=== PATIENT | male | born 1960 | race Caucasian/White ===

== ENCOUNTER 2017-07-03 02:09 | Inpatient (IN) | payer OTHER ==
[~2017-07-03] VITALS: Ht 170.2 cm; Wt 117.9 kg
[~2017-07-03 02:09] MED LIST: AMLODIPINE BESY10 M1 PO; TOPROL XL100 M1 PO
[2017-07-03] MEDS ORDERED: ASPIRIN EC81 M1 PO (12:22)
[2017-07-03] MEDS ORDERED: MS CONTIN15 M3 PO (12:22)
[2017-07-03] MEDS ORDERED: DILAUDID2 M1 PO (12:22)
[2017-07-03] MEDS ORDERED: PROTONIX20 M1 PO (12:22)
[2017-07-03] MEDS ORDERED: COLACE100 M1 PO (12:22)
--- NOTE | 2017-07-03 12:27 | Patient Discharge Instructions ---
Discharge Instructions General Discharge Information You were seen/treated for: LEFT KNEE ARTHRITIS You had these procedures: LEFT TOTAL KNEE REPLACEMENT Watch for these problems: Increasing pain despite the use of pain medication Increasing redness, warmth or swelling Drainage of any type from incision Inability to bear weight on operative leg Persistent nausea and vomiting Fever greater than 101.5 degrees Please keep wound clean and dry. No ointments or lotions of any type on or near incision at any time. No exceptions. Your dressing will be changed by your nurse on the second day after your surgery. Daily dry dressing changes are recommended each day thereafter. Do not soak your wound in a bath at any time until otherwise indicated by your surgeon. You may shower, please dry wound immediately after shower with a clean towel. Call Surgeon to remove: [place] (2 WEEKS) Do not soak the wound: No Daily wet to dry dressings: No No bath, but you may shower: No Special Instructions: Aspirin: You are taking this medication to help prevent blood clot formation. Please take with food to protect your stomach lining. Please take as directed. Constipation: Pain medication can cause constipation. Dr. Mendoza has recommended that you take Colace and miralax each day. You may discontinue this medication if you develop loose stool or diarrhea. If you wish to continue this medication, it is available over the counter. If you are unable to move your bowels after several days, if you are unable to pass gas and are developing bloating, nausea, or vomiting as a result, please contact your doctor. Diet Continue normal diet: Yes Recommended Diet: Regular Activity Full Activity/No Limits: No (NO STRENUOUS ACTIVITIES) Activity Self Limited: Yes Activity Limited to: Weight bear as tolerated Acute Coronary Syndrome Inclusion Criteria At ID or during hospital stay patient has or had the following: ACS DIAGNOSIS No Discharge Core Measures Meds if any: Prescribed or Continued at Discharge HEATHER/ARB if EF <40% No Aspirin Yes Beta-Roxana Yes Statin Yes Meds if any: NOT Prescribed or Continued at Discharge Congestive Heart Failure Inclusion Criteria At DC or during hospital stay patient has or had the following: CHF DIAGNOSIS No Discharge Core Measures Meds if any: Prescribed or Continued at Discharge Meds if any: NOT Prescribed or Continued at Discharge Cerebrovascular accident Inclusion Criteria At DC or during hospital stay patient has or had the following: CVA/TIA Diagnosis No Discharge Core Measures Meds if any: Prescribed or Continued at Discharge Meds if any: NOT Prescribed or Continued at Discharge Venous thromboembolism Inclusion Criteria VTE Diagnosis No VTE Type NONE VTE Confirmed by (Test) NONE Discharge Core Measures - Per Current guidelines, there needs to be overlap - treatment for the first 5 days of Warfarin therapy. - If discharged on Warfarin prior to 5 days of - overlap therapy, the patient will need to be - assessed for post discharge needs including - *Post discharge parental anticoagulation - *Warfarin and/or parental anticoagulation education - *Follow up date to check INR post discharge At least 5 days overlap therapy as Inpatient Yes Meds if any: Prescribed or Continued at Discharge Warfarin No Note: Overlap Therapy is Warfarin and Anticoagulant Meds if any: NOT Prescribed or Continued at Discharge No Warfarin d/t Prescribed other Anticoag No Overlap Therapy d/t Prescribed other Anticoag
--- NOTE | 2017-07-03 12:34 | Surg Short-stay <48hrs Dis Sum ---
Visit Information Visit Dates Admission Date: 07/03/17 Discharge Date: 07/05/17 Surgical Short Stay DC Summary Admission Diagnosis: LEFT KNEE OSTEOARTHRITIS Final Diagnosis: LEFT KNEE OSTEOARTHRITIS Procedure(s): LEFT TOTAL KNEE ARTHROPLASY Summary/Significant Findings: Aspirin: You are taking this medication to help prevent blood clot formation. Please take with food to protect your stomach lining. Please take as directed. 57 Y/O MALE IS S/P LEFT TOTAL KNEE ARTHROPLASTY ON 07/03/2017 PMHX SIGNIFICANT FOR HYPERTENTION AND HYPERLIPIDEMIA. HE HAD AN UNEVENTFUL POSTOPERATIVE COURSE. HE WAS SEEN ON THE FLOOR BY PT FOR WBAT. THROUGH OUT HIS HOSPITAL STAY HIS VVS HAVE REMAINED STABLE AND HE IS AFEBRILE. HE IS DISCHAGED IN STABLE CONDITION WITH ALL QUESTIONS ANSWERED Condition at Discharge: STABLE Discharge Disposition: home health services Discharge instructions provided to patient/family: Yes Post discharge follow-up plan: CALL OFFICE FOR FOLLOW-UP IN 6 WEEKS Copies to: Harjinder Mendoza MD
--- NOTE | 2017-07-03 13:46 | Operative Report ---
Operative/Inv Procedure Report Surgery Date: 07/03/17 Name of Procedure: Left total knee replacement Pre-Operative Diagnosis: Primary left knee DJD Post-Operative Diagnosis: Same Estimated Blood Loss: 50ml to 100ml Surgeon/Logistics/Shipper: Reji SCALES,Harjinder Alfonso Anesthesia: block Operative/Procedure Note Note: Description of Procedure: The patient was taken to the operating room and positively identified. After induction of spinal anesthesia and administration of appropriate pre-operative antibiotics, the patient was positioned supine on the operating room table and all bony prominences were well padded. A well-padded pneumatic tourniquet was placed on the left upper thigh. After performing a surgical timeout, the left lower extremity was prepped and draped in the usual sterile fashion. After exsanguination with Esmarch the tourniquet was inflated to 250mm of mercury. A standard medial parapatellar approach was made to the knee. This was carried down through skin and subcutaneous tissue to the level of the fascia. Meticulous hemostasis was maintained with Bovie electrocautery. The extensor mechanism and patellar retinaculum were opened sharply and the patella was everted. The infrapatellar fat was resected in order to improve exposure. Osteophytes were trimmed from the patella and femoral condyles and the patella was re-everted and tucked laterally. A medial release was performed and the cruciate ligaments were resected. The tibia was then subluxed anteriorly. Utilizing the appropriate extra-medullary guide, the proximal tibia was trimmed perpendicular to the long axis of the tibial shaft. Attention was then turned to the femur. After opening the medullary canal, the distal femoral cut was made in 6 degrees of valgus utilizing the appropriate intra-medullary guide. The extension gap was checked and found to be appropriate. The femur was then sized and the remainder of the femoral cuts were made with a size 5 4-in-1 femoral cutting guide. The flexion gap was checked and found to be symmetric and appropriate. The knee was then trialed with a size 5 femoral component, a size 5 tibial component and a size 22 TS mm polyethylene insert. The patella was trimmed to accept an A 35 patella. This yielded excellent range of motion, stability and patellar tracking. All trial components were removed and the knee was copiously irrigated with sterile saline. All components were cemented into place with Erlin Simplex cement. All the components were of the [place] [employer] knee system of the above stated sizes. The knee was again irrigated after cementation. The extensor mechanism and patellar retinaculum were repaired using interrupted #1 vicryl suture. The skin was re-approximated with 2-0 vicryl and closed with richard. A sterile dressing was applied, the tourniquet was deflated, the patient was awakened and taken to the recovery room in satisfactory condition.
[2017-07-03 15:35] VITALS: BP 108/66
--- NOTE | 2017-07-03 16:42 | Admission Core Measures ---
Acute Coronary Syndrome (CM) ACS Core Measures Acute Coronary Syndrome Diagnosis No Congestive Heart Failure (NEW) CHF Core Measures Congestive Heart Failure Diagnosis No Cerebrovascular Accident (NEW) CVA Core Measures CVA/TIA Diagnosis No Venous Thromboembolism VTE Core Bg (View Protocol) VTE Risk Factors Surgery No Mechanical VTE Prophylaxis d/t N/A MechProphylax Ordered No VTE Pharm Prophylaxis d/t NA PharmProphylax ordered Problem List As ranked by this Provider includes Assessment & Plan 1. Primary osteoarthritis of left knee HOME MEDS Home Med List Amlodipine Besylate 10 MG TABLET 1 TAB PO DAILY BP (Reported) Aspirin (Ecotrin*) 81 MG TABLET.DR 321 MG PO BID CLOT PREVENTION Docusate Sodium (Colace) 100 MG CAPSULE 1 CAP PO BID PREVENT CONSTIPATION Hydromorphone HCl (Dilaudid) 2 MG TABLET 1-2 TAB PO Q4-6 PRN PRN PAIN Metoprolol Succ XL (Toprol XL) 100 MG TAB.ER.24H 1 TAB PO DAILY BP (Reported) Morphine Sulfate (Ms Contin) 15 MG TABLET.ER 1 TAB PO BID PRN PAIN Pantoprazole Sodium (Protonix) 20 MG TABLET.DR 1 TAB PO DAILY GI PROTECTION
--- NOTE | 2017-07-03 16:51 | PN- Orthopedic ---
Subjective Subjective: No acute post operative events reported. Pain starting, but tolerable at present. No complaints of chest pain, shortness of breath and difficulty breathing. No complaints of nausea and vomitting. Has yet to get oob. Voided. Objective Vital Signs and I&Os Vital Signs Date Time Temp Pulse Resp B/P B/P Pulse O2 O2 Flow FiO2 Mean Ox Delivery Rate 07/03 1535 97.0 50 18 108/66 96 Room Air Intake & Output 07/03 1600 07/03 0807/03 0000 07/02 1600 07/02 0807/02 0000 Intake Total Output Total Balance Patient 260 lb Weight Physical Exam: General: Alert and oriented x3, no acute distress Cardiac: Sinus med, hr 55 on auscultaiton Pulm: CTA bilaterally, nonlabored respiratory effort Abd: non-tender, non-distended Extremities: Moves all extremities, distal sensation grossly intact. Skin warm and well pefused. Hemovac x1 holding suction. Dressing to operative knee dry and intact. Bilateral calves soft and non-tender. Assessment/Plan Assessment/Plan This is a 57 year old male, POD 0, s/p L TKR -Melatonin for sleep tonight -Hold metoprolol if bradycardia persists -Follow up labs in am -OOB, with assist, wbat -ASA 325 bid for dvt ppx -Dilaudid po prn for pain, scheduled offirmev, prn toradol, prn morphine -keep hemovac to suction overnight -Diet as tolerated -Bowel regimen scheduled, colace and miralax -On Q in place, to be removed POD 2 -Dressing change POD [address] Will discuss poc with Dr[address] Mendoza Core Measures Venous Thromboembolism VTE Risk Factors Surgery No Mechanical VTE Prophylaxis d/t N/A MechProphylax Ordered No VTE Pharm Prophylaxis d/t NA PharmProphylax ordered
[2017-07-03 16:57] VITALS: BP 130/74
[2017-07-03 19:04] VITALS: BP 134/80
[2017-07-03 21:00] VITALS: BP 130/76
[2017-07-04 00:15] VITALS: BP 148/84
[2017-07-04 04:24] VITALS: BP 140/88
--- NOTE | 2017-07-04 07:30 | PN- Orthopedic ---
Subjective Subjective: Patient with complaints of pain to the left knee , it is moderate No other complaints, feels well otherwise, no fever no flulike illness. Objective Vital Signs and I&Os Vital Signs Date Time Temp Pulse Resp B/P B/P Pulse O2 O2 Flow FiO2 Mean Ox Delivery Rate 07/04 0424 98.1 64 18 140/88 97 Room Air 07/04 0015 97.7 65 18 148/84 98 Room Air 07/03 2100 98.1 67 18 130/76 96 Room Air 07/03 1904 96.8 55 20 134/80 98 Room Air 07/03 1850 Room Air Room Air 07/03 1657 96.1 43 20 130/74 97 Room Air 07/03 1535 97.0 50 18 108/66 96 Room Air Intake & Output 07/04 0800 07/04 0000 07/03 1600 07/03 0800 07/03 0000 07/02 1600 Intake Total 840 1140 Output Total 1110 500 Balance -270 640 Intake, IV 600 900 Intake, Oral 240 240 Number 0 Bowel Movements Output, 210 500 Drainage Output, Urine 900 Patient 260 lb Weight Physical Exam: Well-developed well-nourished no apparent distress. HEENT: Atraumatic, extraocular motion intact Neck: Supple, no lymphadenopathy Respiratory: No respiratory distress Extremities: No edema LEFT lower extremity dressing in place, Range of motion 0-45 On-Q in place Hemovac drain in place with small amount of bloody drainage noted Compression wrap in place. ALPS in place Neurovascularly intact distally Bilateral calves are supple, nontender. Neuro: Alert and oriented x3 Psych: Mood affect normal, normal memory normal judgment. Skin: Warm and dry, no rash on exposed skin Assessment/Plan Assessment/Plan Postop day #1 status post left total knee arthroplasty Perioperative antibiotics. Pain medication as needed. Out of bed Physical therapy, weightbearing as tolerated DC IV fluids Continue Hemovac drain due to increased output overnight of 210 mL's, possible pull drain at the end of the next shift Regular diet Follow a.m. labs Aspirin for DVT prophylaxis ALPS for DVT prophylaxis Regular home meds Dressing change postop day 2 Core Measures Venous Thromboembolism VTE Risk Factors Surgery No Mechanical VTE Prophylaxis d/t N/A MechProphylax Ordered No VTE Pharm Prophylaxis d/t NA PharmProphylax ordered
[2017-07-04 08:00] LABS: ABSOLUTE BASOPHIL COUNT 0 /CUMM (0.0-0.2); ABSOLUTE EOSINOPHIL COUNT 0 /CUMM (0.0-0.7); ABSOLUTE GRANULOCYTE CT 7.4 /CUMM (1.4-6.5); ABSOLUTE LYMPH COUNT 0.6 /CUMM (1.2-3.4); ABSOLUTE MONOCYTE COUNT 0.3 /CUMM (0.10-0.60); BASOPHIL % 0 % (0.0-2.0); EOSINOPHIL % 0 % (0-5); HEMATOCRIT 38.7 % (42-52); MEAN CORPUSCULAR HGB 30.6 PG (27.0-31.0); MEAN CORPUSCULAR HGB CONC 34.1 G/DL (33.0-37.0); MEAN CORPUSCULAR VOLUME 89.7 FL (80.0-94.0); MEAN PLATELET VOLUME 8.6 FL (7.4-10.4); PLATELET COUNT 156 /CUMM (130-400); RBC DISTRIBUTION WIDTH 12.8 % (11.5-14.5); RED BLOOD CELL CT 4.32 /CUMM (4.70-6.10); WHITE BLOOD CELL COUNT 8.3 /CUMM (4.8-10.8)
[2017-07-04 09:29] LABS: GRANULOCYTE % 88.9 % (42.2-75.2)
[2017-07-04 14:46] VITALS: BP 130/80
[2017-07-04 22:14] VITALS: BP 120/60
[2017-07-05 06:19] VITALS: BP 120/64
--- NOTE | 2017-07-05 07:51 | PN- Orthopedic ---
Subjective Subjective: Drain removed inadvertently last shift, no bleeding, no worsening pain. On Q dc 'd this am. Dressing changed. Pt expressing interest in possible dc to home later today. Denies chest pain, shortness of breath and difficulty breathing. Denies nausea and vomitting. Has been oob. Has voided. Needs to work with PT to clear stairs today. Objective Vital Signs and I&Os Vital Signs Date Time Temp Pulse Resp B/P B/P Pulse O2 O2 Flow FiO2 Mean Ox Delivery Rate 07/05 618 98.5 63 20 120/64 96 Room Air 07/04 2214 98.3 74 20 120/60 98 07/04 1446 98.6 73 18 130/80 98 Room Air 07/04 0906 98.1 64 18 140/88 07/04 0906 98.1 64 18 140/88 Intake & Output 07/05 0800 / 0000 07/04 1600 07/04 0800 07/04 0000 /02 1600 Intake Total 250 260 317 267 3210 Output Total 550 189 071 4061 500 Balance -300 -635 450 -270 640 Intake, IV 10 20 600 900 Intake, Oral 240 240 800 240 240 Number 0 Bowel Movements Output, 475 210 500 Drainage Output, Urine 550 420 350 900 Patient 260 lb Weight Physical Exam: General: Alert and oriented x3, no acute distress Cards: RRR, s1s2 Pulm: CTA, non-labored respiratory effort Abd: Non-tender, non-distended Extremities: Moves all extremities, distal sensation grossly intact. Skin warm and well perfused. Dressing changed, skin edges well approximated, richard inplace. No erythema. No drainage. Hemovac site healed. Some ecchymosis. Clean dry dressing reapplied. Bilateral calves soft and non-tender. Assessment/Plan Assessment/Plan This is a 57 year old male, POD 2, s/p L TKR -Continue asa 325 bid for dvt ppx -Continue oob, wbat, stairs with PT -Continue diet as tolerated -Daily dry dressing changes -Continue po only pain regimen Anticipate dc to home today pending pain control and pt clearance Will discuss poc with Dr. Mendoza Core Measures Venous Thromboembolism VTE Risk Factors Surgery No Mechanical VTE Prophylaxis d/t N/A MechProphylax Ordered No VTE Pharm Prophylaxis d/t NA PharmProphylax ordered
[2017-07-05] MEDS ORDERED: MIRALAX17 G1 PO (07:53)
[2017-07-05] MEDS ORDERED: ASPIRIN EC325 M2 PO (07:53)
[2017-07-05 08:44] VITALS: BP 82/60
[2017-07-05 09:14] LABS: ABSOLUTE BASOPHIL COUNT 0.2 /CUMM (0.0-0.2); ABSOLUTE EOSINOPHIL COUNT 0.1 /CUMM (0.0-0.7); ABSOLUTE GRANULOCYTE CT 6.3 /CUMM (1.4-6.5); ABSOLUTE LYMPH COUNT 2.7 /CUMM (1.2-3.4); ABSOLUTE MONOCYTE COUNT 0.8 /CUMM (0.10-0.60); BASOPHIL % 2.1 % (0.0-2.0); EOSINOPHIL % 1.4 % (0-5); GRANULOCYTE % 61.5 % (42.2-75.2); HEMATOCRIT 34.5 % (42-52); MEAN CORPUSCULAR HGB 30.5 PG (27.0-31.0); MEAN CORPUSCULAR HGB CONC 33.6 G/DL (33.0-37.0); MEAN CORPUSCULAR VOLUME 90.8 FL (80.0-94.0); MEAN PLATELET VOLUME 8.9 FL (7.4-10.4); PLATELET COUNT 177 /CUMM (130-400); RBC DISTRIBUTION WIDTH 12.9 % (11.5-14.5); WHITE BLOOD CELL COUNT 10.2 /CUMM (4.8-10.8)
[2017-07-05 09:45] VITALS: BP 114/64
[2017-07-05 14:03] VITALS: BP 132/72
== END 2017-07-05 15:45 | disposition home health service (06) | DRG 470 ==
LOC: SDA 02:09 → ENRESERV 13:53 → ENTRNSPT 14:48 → EDTRNSPT 14:55 → EDTRNSPTSTS 14:55 → EDTRNSPT 14:57 → 2NA 15:05 → CMPTRNSPT 15:05 → ENPENDDIS 07-05 07:57 → ENTRNSPT 07-05 15:25 → EDTRNSPT 07-05 15:29 → CMPTRNSPT 07-05 15:43 → 2NA 07-05 15:45
PROVIDERS: Physician Assistant
PROC: 3E0T3BZ Introduction of Anesthetic Agent into Peripheral Nerves and Plexi, Percutaneous Approach (ICD-10-PCS; principal; 2017-07-03)
PROC: 0SRD0J9 Replacement of Left Knee Joint with Synthetic Substitute, Cemented, Open Approach (ICD-10-PCS; principal; 2017-07-03)
DX: M17.12 Unilateral primary osteoarthritis, left knee (principal); F17.210 Nicotine dependence, cigarettes, uncomplicated; I10 Essential (primary) hypertension
CPT/HCPCS: 2NAP; 36415; 36592; 82436; 88305; 97110-GO; 97116-GO; 97161-GP; 97530-GO; C1713; J0131; J0690; J2405; J2795; J7042; J7508